=== PATIENT | female | born 2000 | race Caucasian/White ===

== ENCOUNTER → 2021-06-21 13:20 | Outpatient (BNVA) | payer SELFPAY | PROVIDERS: Family Provider Family Medicine; Visit Provider Obstetrics & Gynecology | DX: O09.32 Supervision of pregnancy with insufficient antenatal care, second trimester; O34.219 Maternal care for unspecified type scar from previous cesarean delivery | CPT/HCPCS: 80307; 81025; 83036; 85027; 86592; 86762; 86803; 86850; 86900; 87086; 87340; 87806 ==

== ENCOUNTER → 2021-07-11 10:40 | Outpatient (BNVA) | payer MEDICAID, SELFPAY | PROVIDERS: Family Provider Family Medicine; Visit Provider Obstetrics & Gynecology | DX: Z34.92 Encounter for supervision of normal pregnancy, unspecified, second trimester (principal); Z3A.21 21 weeks gestation of pregnancy | CPT/HCPCS: 76805 ==

== ENCOUNTER → 2021-07-15 13:55 | Outpatient (BNVA) | payer MEDICAID, SELFPAY | PROVIDERS: Family Provider Family Medicine; Visit Provider Obstetrics & Gynecology | DX: O28.3 Abnormal ultrasonic finding on antenatal screening of mother (principal); N92.6 Irregular menstruation, unspecified; O34.219 Maternal care for unspecified type scar from previous cesarean delivery; O44.42 Low lying placenta NOS or without hemorrhage, second trimester | CPT/HCPCS: 81000; 87491; 87591 ==

== ENCOUNTER → 2021-07-20 00:01 | Outpatient (BNVA) | payer MEDICAID, SELFPAY | PROVIDERS: Family Provider Family Medicine; Visit Provider Obstetrics & Gynecology | DX: O09.32 Supervision of pregnancy with insufficient antenatal care, second trimester (principal); R80.9 Proteinuria, unspecified | CPT/HCPCS: 84156 ==

== ENCOUNTER → 2021-08-01 09:56 | Outpatient (BNVA) | payer MEDICAID, SELFPAY | PROVIDERS: Family Provider Family Medicine; Visit Provider Obstetrics & Gynecology | DX: Z34.90 Encounter for supervision of normal pregnancy, unspecified, unspecified trimester (principal) | CPT/HCPCS: 81000; 82950 ==

== ENCOUNTER → 2021-08-26 08:48 | Outpatient (BNVA) | payer MEDICAID, SELFPAY | PROVIDERS: Family Provider Family Medicine; Visit Provider Obstetrics & Gynecology | DX: O09.32 Supervision of pregnancy with insufficient antenatal care, second trimester (principal) | CPT/HCPCS: 84315; 85025 ==

== ENCOUNTER → 2021-09-06 08:47 | Outpatient (BNVA) | payer MEDICAID, SELFPAY | PROVIDERS: Family Provider Family Medicine; Visit Provider Obstetrics & Gynecology | DX: O09.32 Supervision of pregnancy with insufficient antenatal care, second trimester (principal) | CPT/HCPCS: 81000 ==

== ENCOUNTER → 2021-10-04 10:20 | Outpatient (BNVA) | payer MEDICAID, SELFPAY | PROVIDERS: Family Provider Family Medicine; Visit Provider Obstetrics & Gynecology | DX: O09.32 Supervision of pregnancy with insufficient antenatal care, second trimester (principal) | CPT/HCPCS: 81000 ==

== ENCOUNTER → 2021-10-18 09:19 | Outpatient (BNVA) | payer MEDICAID, SELFPAY | PROVIDERS: Family Provider Family Medicine; Visit Provider Obstetrics & Gynecology | DX: O09.33 Supervision of pregnancy with insufficient antenatal care, third trimester (principal); Z3A.00 Weeks of gestation of pregnancy not specified | CPT/HCPCS: 81000; 87081 ==

== ENCOUNTER → 2021-10-25 09:40 | Outpatient (BNVA) | payer MEDICAID, SELFPAY | PROVIDERS: Family Provider Family Medicine; Visit Provider Obstetrics & Gynecology | DX: O09.32 Supervision of pregnancy with insufficient antenatal care, second trimester (principal) | CPT/HCPCS: 81000 ==

== ENCOUNTER → 2021-11-01 09:29 | Outpatient (BNVA) | payer MEDICAID, SELFPAY | PROVIDERS: Visit Provider Obstetrics & Gynecology | DX: O09.32 Supervision of pregnancy with insufficient antenatal care, second trimester (principal); Z3A.00 Weeks of gestation of pregnancy not specified | CPT/HCPCS: 84315; 87635 ==

== ENCOUNTER 2021-11-08 05:23 | Inpatient (IN) | payer MEDICAID, SELFPAY ==
--- NOTE | 2021-10-27 08:56 | P.ANESASSM_ITS ---
Pre-Anesthetic Assessment Height/Weight: Height 1.63 m Operation Date: 11/08/21 07:00 Proposed Procedures p Section Repeat With Tubal [id number]/o34.219/z30.2(Bilateral) - Willard Erickson MD Familial anesthetic complications: None Social No alcohol and No tobacco Exam alert, oriented x 3, clear to auscultation bilaterally and regular rate & rhythm Airway Mallampati: Class I Dentition: other (permanent retainer) Pulmonary Asthma (childhood) GI Gastroesophageal Reflux Disease Anesthetic Plan ASA status: 2 Anesthesia: Regional (specify below) Other: spinal Risk of > 500 ml blood loss (7ml/kg in children): Yes, adequate IV access and fluids planned Medications/Allergies Home Medications Medication Instructions Recorded Confirmed Last Taken Type prenat.vits,ranjana,loi-vlig-cagym 1 tab PO DAILY 06/21/21 10/25/21 Unknown History Allergies Allergy/AdvReac Type Severity Reaction Status Date / Time No Known Allergies Allergy Verified 10/25/21 09:26 [facility] Anesthesia Surgical History H/O section x2 H/O oral surgery wisdom teeth extraction Family History Grandmother Stroke paternal Denies family history of Colon cancer Ovarian cancer Diabetes Clotting disorder Heart disease Hyperlipidemia Breast cancer Anesthesia complication Bleeding disorder Hypertension Uterine cancer Thyroid condition Data Anesthesia Cardiac Studies: No Data to Display
[2021-11-08] VITALS (26 sets, daily range): BP systolic 96–132; BP diastolic 41–93; PULSE 60–94; RESP 16–19; TEMP 36.6–36.8; O2SAT 95–100; BMI 44.2
[2021-11-08] MEDS: lactated ringers 1,000 ML 999 ML IV (05:56)
[2021-11-08 06:15] LABS: Basophils % 0.3 %; Eosinophils # 0.1 10^3/uL (0.0-0.8); Eosinophils % 1.2 %; Hematocrit 37.3 % (37.0-47.0); Hemoglobin 11.7 g/dL (11.5-15.3); Lymphocytes # 2.2 10^3/uL (0.8-4.8); Lymphocytes % 21.4 %; Mean Corpuscular HGB Conc 31.4 g/dL (30.0-36.0); Mean Corpuscular Hemoglobin 29.6 pg (28.0-34.0); Mean Corpuscular Volume 94.4 fl (81-99); Mean Platelet Volume 12.3 fL (7.4-10.4); Monocytes # 0.6 10^3/uL (0.2-0.9); Monocytes % 5.9 %; Neutrophils # 7.35 10^3/uL (1.8-7.7); Neutrophils % 70.5 %; Nucleated Red Blood Cells % 0 %; Platelet Count 180 10^3/cmm (130-400); Red Blood Count 3.95 10^6/uL (4.1-5.3); Red Cell Distribution Width 14.7 % (12.1-15.1); White Blood Count 10.4 10^3/uL (4.0-10.0)
--- NOTE | 2021-11-08 06:50 | W.PM.OPSUD ---
Surgery/Procedure H&P Update DATE OF PROCEDURE: November 08, 2021 DATE H&P PERFORMED: 11/07/21 H&P UPDATE INFORMATION: I have reviewed H&P completed within last 30 days, I have examined patient prior to procedure and No changes to prior documentation PREOP DIAGNOSIS: previous c section PLANNED PROCEDURE: Operation Date: 11/08/21 07:00 Proposed Procedures p Section Repeat With Tubal [id number]/o34.219/z30.2(Bilateral) - Willard Erickson MD
[2021-11-08] MEDS: metoclopramide 5 mg/mL SDV 2 mL 10 MG IVP (06:53)
[2021-11-08] MEDS: citric acid-sodium citrate 30 mL UDC PO (06:53)
[2021-11-08] MEDS: famotidine 20 mg/2 mL INJ IVP (06:53)
--- NOTE | 2021-11-08 07:00 | ANES.PAUD2 ---
Documented by User: Bryce Lemus CRNA 11/08/21 07:00 Pre-Anesthetic Update Pre-Anesthetic Assessment: Date of Surgery/Procedure: 11/08/21 Preop Diagnosis: previous c section Proposed Procedure: Operation Date: 11/08/21 07:00 Proposed Procedures p Section Repeat With Tubal [id number]/o34.219/z30.2(Bilateral) - Willard Erickson MD Any changes to Pre-Anesthetic Assessment?: No Last Intake: Intake Last Liquid Date 11/07/21 Last Liquid Time 19:00 Last Solid Date 11/07/21 Last Solid Time 19:00 Labs Last 48hrs: Short CBC 11/08/21 Range/Units 05:55 WBC 10.4 H (4.0-10.0) 10^3/ uL Hgb 11.7 (11.5-15.3) g/dL Hct 37.3 (37.0-47.0) % MCV 94.4 (81-99) fl Plt Count 180 (130-400) 10^3/c mm Neut % (Auto) 70.5 % Neut # (Auto) 7.35 (1.8-7.7) 10^3/u L Vitals: Pulse Rate 94 11/08/21 05:31 Pulse Rhythm 11/08/21 05:38 Pulse Strength 3+ Normal 11/08/21 05:38 Respiratory Rate 16 11/08/21 05:32 Respiratory Effort Non-Labored 11/08/21 05:38 Respiratory Depth Normal 11/08/21 05:38 Respiratory Patter n 11/08/21 05:38 Blood Pressure 132/93 11/08/21 05:31 Oxygen Delivery Me thod 11/08/21 05:38 Exam: Pre-Anes Outpt Exam: alert, oriented x 3, clear to auscultation bilaterally and regular rate & rhythm Cardiac Studies: No Data to Display Documented by User: Ramakrishna Guadalupe DO 11/08/21 07:43 Pre-Anesthetic Update Pre-Anesthetic Assessment: Date of Surgery/Procedure: 11/08/21 Cardiac Studies: No Data to Display
--- NOTE | 2021-11-08 08:39 | P.OP_ITS ---
Operative Report Date of procedure: November 08, 2021 Pre-op diagnosis: Previous c section Term . Desire permanent sterilization. Post-op diagnosis: Term delivered. Previous delivery. Repeat low transverse delivery. Bilateral partial salpingectomy. Procedure done: Repeat low transverse delivery Specimens removed/disposition: Left and right fallopian tube segment Surgeon: Willard Erickson MD Estimated blood loss (mL): 800 IV fluids (mL): 1,700 Urine output (mL): 250 Complications: None Findings: Adhesions Procedure: After assuring informed consent, the patient was taken to the operating room and anesthesia was initiated. She was placed in the dorsal supine position with a left lateral tilt. The abdomen was prepped and draped in the usual sterile manner. A time-out procedure was performed. A Pfannenstiel skin incision was made with the scalpel and carried through to the underlying layer of fascia with the Bovie. The fascia was nicked in the midline and the incision extended laterally with the Mosqueda scissors. The superior aspect of the fascial incision was then grasped with Yeu clamps and elevated and the underlying rectus muscle dissected off bluntly and sharp with mosqueda scissors dense adhesions. Attention was then turned to the inferior aspect of the incision which, in similar fashion, was grasped and tented up with Yue clamps and the rectus muscle dissected bluntly. The rectus muscles were then in the midline and the peritoneum identified, tented up and entered sharply with Metzenbaum scissors. The peritoneal incision was then extended superiorly and inferiorly with good visualization of the bladder. The Adonis O retractor was then inserted and the vesicouterine peritoneum identified, grasped with pickups and entered sharply with Metzenbaum scissors. This incision was then extended laterally and the bladder flap created digitally. The uterus incised in a low transverse fashion with the scalpel. The uterine incision was then extended with the bandage scissors. The infant was then delivered in the cephalic presentation atraumatically at 0748 hours with vacuum assist. The nose and the mouth were suctioned with bulb and the cord clamped and cut. The cord was normal and had three vessels. Amniotic fluid was clear. Apgars 8/9, weight 2880g. The placenta was then removed manually and the uterus exteriorized and cleared of all clots and debris. The uterine incision was repaired with 0 Vicryl in a running-locked fashion. A second layer of the same suture was used to obtain excellent hemostasis. The gutters were cleared of all clots. The left fallopian tube was identified and grasped with a [place] clamp. The tube was then followed out to the fimbria. An avascular midsection of the fallopian tube was grasped with a Alonzo clamp and brought into a knuckle. The tube was doubly ligated with an O-plain suture and transected. The specimen was sent to pathology. Excellent hemostasis was noted. The same procedure was performed on the opposite fallopian tube. The uterus was then returned to the abdomen. The rectus muscles were approximated with 3-0 chromic gut. The ON-Q pain management system placed. The fascia was reapproximated with 0 Vicryl in an interrupted running fashion. The skin was closed with Insorb?s subcuticular absorbable corey. The patient tolerated the procedure well. The sponge, lap and needle counts were correct times three.
--- NOTE | 2021-11-08 08:39 | PM.PACU ---
Documented by User: Bryce Lemus CRNA 11/08/21 08:39 PACU note Narrative: VSS, Good respiratory effort, report to TELESALES MANAGER Exam: awake
--- NOTE | 2021-11-08 09:30 | PC.NURSE ---
During section this morning heart tones were attempted by Doppler by CHEYENNE DACOSTA, and Dr. Erickson multiple times but was unable to get a response. Dr. Erickson then requested that the ultrasound machine be brought into the OB/OR to get heart tones that way and check status. ALEKSANDRA went to get ultrasound and upon entering the room with ultrasound and attempting to set it up there was an equipment malfunction and it kept saying probe not attached although it was. CHEYENNE then removed the patient belly tape and again attempted to obtain heart tones with the Doppler and was able to get a reading of 150's. Dr. Erickson also listened and then cleared us to move forward with the procedure. The ultrasound machine was taken from the OB/OR and placed in PR[facility]HA Singh office for maintenance check.
--- NOTE | 2021-11-08 09:52 | ANE.PACU2 ---
Inpatient post-anesthesia follow up: Airway intact: Yes Vital signs: Temperature Pulse Rate 94 Respiratory Rate 16 Blood Pressure 132/93 Pulse Oximetry Oxygen Delivery Me thod Room Air Oxygen Flow Rate Fraction of Inspir ed Oxygen Hydration adequate: Yes Nausea and vomiting: No Pain level: 1 Mental status: Baseline
--- NOTE | 2021-11-08 11:30 | PC.NURSE ---
Patient needs incentive spirometer as she had surgical procedure this morning. I went over the technique with her and she rememebered doing it with her last . We are out of incentive spirometers at this time and put it on the list to order from store room. Suzanne rios was also going to call and see if they could bring us some over as well.
[2021-11-08] MEDS: dextrose 5%-lactated ringers 1,000 ML 125 ML IV ×2 (11:54→18:02)
--- NOTE | 2021-11-08 14:40 | PC.NURSE ---
Patient was assisted by this nurse from her bed to the chair in the corner of the room. The patient tolerated the activity well with no complaints. This nurse performed a complete bed change and refilled the patients water at this time. She will remain in the chair for 30 minutes and then she has requested to walk after that.
--- NOTE | 2021-11-08 15:17 | PC.NURSE ---
Patient sat in the chair for 35 minutes and then took one large lap around the OB unit. She tolerated walking with no problems or complaints. Patient requested to sit back in chair upon going back into room.
[2021-11-08] MEDS: ketorolac 30 mg/mL INJ IVP ×2 (15:49→21:48)
[2021-11-08] MEDS: ferrous sulfate EC 325 mg Tablet PO (18:02)
[2021-11-08] MEDS: docusate sodium 100 mg Capsule PO (18:05)
--- NOTE | 2021-11-08 18:15 | PC.NURSE ---
Patient ate her dinner meal and tolerated it well with no nausea or vomiting. She also walked again after eating and is back in her room now sitting in the chair.
[2021-11-08 20:55] LABS: Hematocrit 31.9 % (37.0-47.0); Hemoglobin 10.3 g/dL (11.5-15.3); Mean Corpuscular HGB Conc 32.3 g/dL (30.0-36.0); Mean Corpuscular Hemoglobin 30.3 pg (28.0-34.0); Mean Corpuscular Volume 93.8 fl (81-99); Mean Platelet Volume 12.1 fL (7.4-10.4); Platelet Count 162 10^3/cmm (130-400); Red Cell Distribution Width 15.1 % (12.1-15.1); White Blood Count 9.5 10^3/uL (4.0-10.0)
[2021-11-09 03:35] VITALS: BP 116/71; PULSE 69; RESP 14; O2SAT 99
[2021-11-09] MEDS: docusate sodium 100 mg Capsule PO (08:17)
[2021-11-09] MEDS: prenatal vitamin Capsule 1 CAP PO (08:17)
[2021-11-09] MEDS: ibuprofen 800 mg tablet PO ×3 (08:17→20:45)
[2021-11-09 10:00] VITALS: BP 122/76; PULSE 70; RESP 16; TEMP 36.7; O2SAT 98
[2021-11-09 16:00] VITALS: BP 106/74; PULSE 85; RESP 16; TEMP 36.6; O2SAT 96
--- NOTE | 2021-11-09 18:40 | PM.PN ---
Subjective Subjective: Mrs. Lopez 18 status post repeat low transverse delivery postoperative day 1. Pain under control Vitals/I&O/Wt Last Vital Signs Temp 98.0 F 11/09/21 10:00 Pulse 70 11/09/21 10:00 Resp 16 11/09/21 10:00 BP 122/76 11/09/21 10:00 Pulse Ox 98 11/09/21 10:00 11/09/21 11/09/21 11/09/21 06:59 14:59 22:59 Output Total 800 / 800 Balance -800 / -800 Weight last 48 hrs Weight 117.027 kg Physical Exam Narrative: GA: Alert and oriented ?3. HEENT: WNL. Heart: Regular rate and rhythm. Breasts: engorged Nipples - skin intact. Lungs: Clear to auscultation bilaterally. Abdomen: Bowel sounds present, nontender, minimal tenderness, incision clean and dry, no redness, pain or edema. Uterine fundus below umbilicus. No Fundal Tenderness. INFRASTRUCTURE MANAGER: Normal lochia Extremities: No edema, no cyanosis, no calves pain. Urinary Catheter Management: Contreras: Cath Placed During This Visit: yes, but has since been removed by the nurse Reason for Continuing Indwelling Catheter: Decision to DC Catheter Urinary Catheter Date of Insertion: 11/08/21 Urinary Catheter Time of Insertion: 07:20 Date Urinary Catheter Removed: 11/08/21 Time Urinary Catheter Discontinued: 21:00 Data : 11/08/21 20:49 A&P Assessment and plan (1) Status post delivery: Mrs. Lopez is status post repeat low transverse delivery and bilateral partial salpingectomy postoperative day 1. She is afebrile and hemodynamically stable. Tolerating diet well. Ambulating without difficulty. Breast-feeding without difficulty. Status: Acute Plan Postop observation Attestations Medical Necessity Statement*: In my professional opinion per admitting diagnosis Coding Level of Care Code Acute Geological Technician for Chg Fwd Diagnoses Status post delivery Z98.891
[2021-11-09 22:58] VITALS: BP 132/83; PULSE 84; RESP 16; TEMP 36.7; O2SAT 98
[2021-11-10 04:53] VITALS: BP 130/81; PULSE 80; RESP 16; TEMP 36.8; O2SAT 97
[2021-11-10] MEDS: ibuprofen 800 mg tablet PO (08:46)
[2021-11-10] MEDS: prenatal vitamin Capsule 1 CAP PO (08:46)
--- NOTE | 2021-11-10 10:23 | P.DS_ITS ---
Discharge Providers RECEIVING BARN CUSTODIAN Date of Admission: 11/08/21 05:23 Date of Discharge: 11/10/21 Attending Provider at Admission: Willard Erickson MD Attending Provider at Discharge: Willard Erickson MD Primary RECEIVING BARN CUSTODIAN: Willard Erickson MD Diagnoses at Discharge Discharge Diagnosis (1) Status post delivery: Status: Acute Reason for Visit Reason for Visit: previous c/s; undesired fertility Hospital Course Hospital Course Ms. Lopez is a 21 y/o with an unknown LMP and an EDC of 11/15/2021 based on ultrasound. Came to the hospital at 39 weeks estimated gestational age scheduled repeat low transverse delivery and permanent sterilization. The delivery and bilateral partial salpingectomy were performed without complication. She delivered a male , Apgars 8/9 with a birthweight of 2880 g. Postop observation uneventful. She is afebrile and hemodynamically stable postoperative day 2. Tolerating diet well. Ambulating without difficulty. Passing flatus. Breast-feeding without difficulty. Counseled regarding pelvic rest for the next 6 weeks. Information Peripartum Data: Delivery Method: Physical Exam Narrative: Narrative GA: Alert and oriented ?3. HEENT: WNL. Heart: Regular rate and rhythm. Breasts: engorged Nipples - skin intact. Lungs: Clear to auscultation bilaterally. Abdomen: Bowel sounds present, nontender, minimal tenderness, incision clean and dry, no redness, pain or edema. Uterine fundus below umbilicus. No Fundal Tenderness. SECURITY SYSTEMS SPECIALIST: Normal lochia Extremities: No edema, no cyanosis, no calves pain. Urinary Catheter Management: Contreras: Cath Placed During This Visit: yes, but has since been removed by the nurse Reason for Continuing Indwelling Catheter: Decision to DC Catheter Urinary Catheter Date of Insertion: 11/08/21 Urinary Catheter Time of Insertion: 07:20 Date Urinary Catheter Removed: 11/08/21 Time Urinary Catheter Discontinued: 21:00 History History History 4 Term 2 Miscarriages/Ectopic 1 0 Living Children 2 Discharge Data Studies Completed and Pending Completed Studies During Hospitalization Category Date Time Status Pathology: Surgical [PTH] Routine Pth 11/08/21 10:30 Completed Laboratory Results WBC 9.5 10^3/uL (4.0-10.0) 11/08/21 20:49 RBC 3.40 10^6/uL (4.1-5.3) L 11/08/21 20:49 Hgb 10.3 g/dL (11.5-15.3) L 11/08/21 20:49 Hct 31.9 % (37.0-47.0) L 11/08/21 20:49 MCV 93.8 fl (81-99) 11/08/21 20:49 MCH 30.3 pg (28.0-34.0) 11/08/21 20:49 MCHC 32.3 g/dL (30.0-36.0) 11/08/21 20:49 RDW 15.1 % (12.1-15.1) 11/08/21 20:49 Plt Count 162 10^3/cmm (130-400) 11/08/21 20:49 MPV 12.1 fL (7.4-10.4) H 11/08/21 20:49 Neut % (Auto) 70.5 % 11/08/21 05:55 Lymph % (Auto) 21.4 % 11/08/21 05:55 Scurry % (Auto) 5.9 % 11/08/21 05:55 Eos % (Auto) 1.2 % 11/08/21 05:55 Baso % (Auto) 0.3 % 11/08/21 05:55 Neut # (Auto) 7.35 10^3/uL (1.8-7.7) 11/08/21 05:55 Lymph # (Auto) 2.2 10^3/uL (0.8-4.8) 11/08/21 05:55 Scurry # (Auto) 0.6 10^3/uL (0.2-0.9) 11/08/21 05:55 Eos # (Auto) 0.1 10^3/uL (0.0-0.8) 11/08/21 05:55 Baso # (Auto) 0.0 10^3/uL (0.0-0.1) 11/08/21 05:55 Nucleated RBC % (auto) 0 % 11/08/21 05:55 Nucleated RBCs # 0.0 /100WBC 11/08/21 05:55 Vitals Last Vital Signs Temp 98.3 F 11/10/21 04:53 Pulse 80 11/10/21 04:53 Resp 16 11/10/21 04:53 BP 130/81 11/10/21 04:53 Pulse Ox 97 11/10/21 04:53 Discharge Plan Discharge Patient Disposition: Home Condition: Stable Prescriptions: New hydrocodone-acetaminophen 5-325 mg tablet 1 tab PO Q4H PRN (Reason: pain) Qty: 20 0RF acetaminophen 325 mg capsule 325 mg PO Q4H PRN (Reason: fever or pain) Qty: 60 0RF ibuprofen 800 mg tablet 800 mg PO TID PRN (Reason: pain) Qty: 60 0RF Continued prenat.vits,ranjana,rca-wdvw-novqa Tablet 1 tab PO DAILY 0RF Discharge Orders: Discharge Order (Routine); Ordered 11/10/21 Ordered By: Willard Erickson Referrals: Willard Erickson MD [Physician] - 2 weeks Discharge Diet: Usual diet Discharge Activity: Limit activity as instructed Patient Instructions: Depression (DC), Bleeding (DC), Preeclampsia and Eclampsia After Delivery (GEN), Tubal Ligation (DC), OB Abdominal Surgery - [facility], OB [facility], OB Discharge Report, OB Food/Drug Interaction Guide, Opioid Safety, OB Home Care Activity Restrictions/Additional Instructions: 1. Please call [facility] on next working day to make your post-operative appointment in 2 weeks. 2. Please stay home until you come back to the clinic on first post-operative check up. 3. Please follow instructions on your medications CAREFULLY. 4. If you have abdominal incision, do not cover it unless dressing is necessary because of drainage. OK to shower, but avoid bath. Leave steri-strips until they fall off. If they are still on one week after surgery, you may remove them. 5. If you had vaginal surgery or vaginal repair, Dr. Erickson may instruct you to take SITZ bath. 6. Yellow, blood tinged odorous vaginal discharge is usually normal after hysterectomy or vaginal surgeries. 7. No sexual intercourse, tampons, or douches until you are completely released from the post-operative care. 8. Avoid constipation by eating right and maybe using some Metamucil or Milk of Magnesia. 9. All prescription refills are given during the working hours. Please do no wait till it runs out. Call the clinic at [phone] before your medication runs out. The clinic will get in touch with your doctor to prescribe medications if necessary. 10. Please remain within 40 mile radius from our hospital because emergencies do happen now and then during the post-operative period. 11. If you have stairs at home, take one step at a time slowly and minimize the number of trips. It helps to stay in one floor for the next few days. No lifting except what you can lift by one hand until you are released from the post-operative care. 12. Driving is discouraged until you are well healed. It may be 3-4 weeks before you feel strong enough to drive. You should be able to turn and look through the rear window without pain and you should be able to push the brake p edal very hard without pain before you drive. No fast rules, but SAFETY should be your primary concern. DO NOT drive if you are on sedating medications such as narcotics. 13. Call the clinic (during working hours) to make urgent appointment or go to the Emergency room, if any of the following occurs: i. Vaginal bleeding becomes heavy, more than a period. ii. Incision becomes red and sore, or drains pus. iii. Your temperature is over 100.4 or you have chill. iv. IV site becomes red and swollen (a little ``knot?? is usually OK) v. Persistent nausea and vomiting vi. Persistent constipation or diarrhea vii. Rash or allergic reaction to medications. Discharge Attestations RECEIVING BARN CUSTODIAN Time Spent in Discharge Care*: greater than 30 min Coding Level of Care Code Acute Auto Haulaway Driver for Regina Fwgavin Diagnoses Status post delivery Z98.891
[2021-11-10 11:35] VITALS: BP 121/77; PULSE 89; RESP 18; TEMP 36.7; O2SAT 97
== END 2021-11-10 11:45 | disposition home or self-care (01) | DRG 785 ==
PROVIDERS: Admitting Provider Obstetrics & Gynecology; Visit Provider Obstetrics & Gynecology
PROC: (CPT 59514; principal; 2021-11-08 07:00)
DX: O34.211 Maternal care for low transverse scar from previous cesarean delivery (principal); N85.8 Other specified noninflammatory disorders of uterus; Z3A.39 39 weeks gestation of pregnancy; Z37.0 Single live birth; Z30.2 Encounter for sterilization
CPT/HCPCS: 36415; 51702; 59025; 85025; 85027; 88302; C9290; J0690; J1885; J2274; J2370; J2405; J2765; J3490; J7030

== ENCOUNTER → 2021-12-16 13:15 | Outpatient (BNVA) | payer MEDICAID, SELFPAY | PROVIDERS: Visit Provider Obstetrics & Gynecology | DX: Z12.4 Encounter for screening for malignant neoplasm of cervix (principal) | CPT/HCPCS: 88175 ==